=== PATIENT | male | born 1985 | race Caucasian/White ===

== ENCOUNTER 2019-05-01 12:15 | Emergency (ER) | payer MEDICAID ==
[~2019-05-01] VITALS: Ht 177.8 cm; Wt 92.5 kg
[2019-05-01 12:25] VITALS: BP 120/76; Ht 177.8 cm; Wt 92.5 kg
== END 2019-05-01 13:33 | disposition home or self-care (01) ==
LOC: ED 12:15
DX: J10.1 Influenza due to other identified influenza virus with other respiratory manifestations (principal); R19.7 Diarrhea, unspecified; R42 Dizziness and giddiness
CPT/HCPCS: 87804